=== PATIENT | female | born 1975 | race Caucasian/White ===

== ENCOUNTER → 2017-05-10 | Outpatient (CLI) | payer OTHER ==
[~2017-05-10] MED LIST: ARNU1INH3 INH; NEXI20CA PO; OMEP40CA2 PO; TOPA50TA8 PO
[2017-05-10 09:23] LABS: MEAN CORPUSCULAR HEMOGLOBIN 29.4 pg (27.0-33.0); MEAN CORPUSCULAR HGB CONC 33.1 g/dl (32.0-36.5); WHITE BLOOD COUNT 8.6 10^3/uL (4.0-10.0)
[2017-05-10 10:01] LABS: ALBUMIN 3.2 GM/DL (3.2-5.2); ALBUMIN/GLOBULIN RATIO 0.97 (1.00-1.93); ALKALINE PHOSPHATASE 94 U/L (45-117); ALT/SGPT 16 U/L (12-78); ANION GAP 8 MEQ/L (8-16); AST/SGOT 14 U/L (15-37); BILIRUBIN,TOTAL 0.1 MG/DL (0.2-1.0); BLOOD UREA NITROGEN 18 MG/DL (7-18); CARBON DIOXIDE LEVEL 25 MEQ/L (21-32); CHLORIDE LEVEL 107 MEQ/L (98-107); CHOLESTEROL LEVEL 193 MG/DL (<200); CREATININE FOR GFR 0.72 MG/DL (0.55-1.02); GLOMERULAR FILTRATION RATE > 60.0 (>60); GLUCOSE, FASTING 112 MG/DL (70-105); POTASSIUM SERUM 4.2 MEQ/L (3.5-5.1); SODIUM LEVEL 140 MEQ/L (136-145); TOTAL PROTEIN 6.5 GM/DL (6.4-8.2); TRIGLYCERIDES LEVEL 370 MG/DL (<150)
== END ==
LOC: M LAB 08:48
PROVIDERS: ATTEND Nurse Practitioner Adult Health
DX: Z00.00 Encounter for general adult medical examination without abnormal findings (principal)

== ENCOUNTER → 2017-09-06 | Outpatient (REF) | payer OTHER ==
[2017-09-07 13:09] LABS: INFLUENZA A AMPLIFICATION NEGATIVE (NEGATIVE); INFLUENZA B AMPLIFICATION NEGATIVE (NEGATIVE)
== END ==
LOC: M SFHCLERA 20:04
DX: J02.9 Acute pharyngitis, unspecified (principal)

== ENCOUNTER 2018-05-25 14:19 | Emergency (ER) | payer OTHER ==
[2018-05-25] MEDS: KETOROLAC 60 MG/2 ML VIAL (J1885) IM (14:41)
== END 2018-05-25 15:06 | disposition home or self-care (01) ==
LOC: M ED 14:19
DX: S29.011A Strain of muscle and tendon of front wall of thorax, initial encounter (principal); X58.XXXA Exposure to other specified factors, initial encounter; Y92.89 Other specified places as the place of occurrence of the external cause; J45.909 Unspecified asthma, uncomplicated; G93.2 Benign intracranial hypertension; K21.9 Gastro-esophageal reflux disease without esophagitis; Z79.899 Other long term (current) drug therapy; Z87.891 Personal history of nicotine dependence
CPT/HCPCS: J1885

== ENCOUNTER → 2019-10-24 | Outpatient (CLI) | payer OTHER ==
[~2019-10-24] MED LIST changes: +IBUP80TA PO; +LORA-243 PO; -OMEP40CA2 PO; +OMEP40CA97 PO; +ROBA500T PO
--- NOTE | 2019-10-24 16:45 | REP ---
Clinical: Right upper quadrant pain. Technique: Three supine views of the abdomen and pelvis. Findings: The bowel gas pattern is nonspecific. There is evidence for prior cholecystectomy and spinal-peritoneal shunt. The osseous structures are intact and age appropriate. No abnormal calcifications are appreciated. Impression: Nonspecific bowel gas pattern. Electronically Signed by Jose E Hunter MD 10/24/2019 04:37 P
== END ==
LOC: M LRY 16:14
PROVIDERS: ATTEND Physician Assistant
DX: R10.11 Right upper quadrant pain (principal)

== ENCOUNTER → 2020-08-12 | Outpatient (CLI) | payer SELFPAY | LOC: M LABSMTC 14:51 | PROVIDERS: ATTEND Pediatrics | DX: Z20.828 Contact with and (suspected) exposure to other viral communicable diseases (principal) ==

== ENCOUNTER → 2025-04-01 | Outpatient (CLI) | payer BC ==
[~2025-04-01] MED LIST changes: +OMEP40CA4 PO; -OMEP40CA97 PO
== END ==
LOC: M RAD 12:34
DX: M25.522 Pain in left elbow (principal)